=== PATIENT | female | born 1975 | race Caucasian/White ===

== ENCOUNTER 2017-05-06 08:28 | Day surgery (SDC) | payer BC ==
[~2017-05-06 08:28] MED LIST: Lidocaine 1%/Sod Bicarbonate in NS 8.4% 1 ML Syringe IV PRN; Sodium Chloride 0.9% 10 ML Syringe FLUSH PRN
[2017-05-06] MEDS ORDERED: Sodium Chloride 0.9% 50 ML SDV ONE (08:51)
[2017-05-06] MEDS ORDERED: Lidocaine 1% with EPINEPHrine 1:100,000 20 ML MDV ONE (08:51)
[2017-05-06] MEDS ORDERED: Propofol 200 MG/20 ML SDV ONE (09:00)
[2017-05-06] MEDS ORDERED: Midazolam 1 MG/ML 2 ML SDV ONE (09:01)
[2017-05-06] MEDS ORDERED: Lidocaine 1% 4 ML ONE (09:01)
[2017-05-06] MEDS ORDERED: fentaNYL 250 MCG/5 ML SDV ONE (09:01)
[2017-05-06] MEDS ORDERED: Rocuronium 50 MG/5 ML Vial ONE (09:01)
[2017-05-06] MEDS ORDERED: Ondansetron 4 MG/2 ML SDV ONE (09:01)
[2017-05-06] MEDS ORDERED: Dexamethasone 4 MG/ML SDV ONE (09:01)
[2017-05-06] MEDS: Lactated Ringers 1,000 ML IV SCH ×2 (09:05→10:27)
--- NOTE | 2017-05-06 09:12 | PCM.PREANE ---
Preanesthetic Assessment - Procedure Proposed Procedure: TVH - Anesthesia/Transfusion/Family Hx Anesthesia History: Prior Anesthesia Reaction Family History of Anesthesia Reaction: No Transfusion History: No Prior Transfusion(s) Intubation History: Unknown - Review of Systems General: No Symptoms Pulmonary: No Symptoms Cardiovascular: Other (Hx of HLD- resolved with fish oil ) Gastrointestinal: Other (Occasional GERD that resolves with TUMs ) Neurological: No Symptoms Other: Reports: None - Physical Assessment NPO Status Date: 05/05/17 NPO Status Time: 21:00 Pulse: 71 O2 Sat by Pulse Oximetry: 98 Respiratory Rate: 16 Blood Pressure: 128/73 Temperature: 36.6 C Height: 1.65 m Weight: 61 kg ASA Class: 2 Mental Status: Alert & Oriented x3 Airway Class: Mallampati = 3 Dentition: Reports: Normal Dentition Thyro-Mental Finger Breadths: 3 ROM/Head Extension: Full Lungs: Clear to Auscultation, Normal Respiratory Effort Cardiovascular: Regular Rate, Regular Rhythm - Allergies Allergies/Adverse Reactions: Allergies Allergy/AdvReac Type Severity Reaction Status Date / Time No Known Allergies Allergy Verified 05/04/17 14:03 - Blood Blood Available: No Product(s) Available: None - Anesthesia Plan Pre-Op Medication Ordered: None - Acknowledgements Anesthesia Type Planned: General Anesthesia Pt an Appropriate Candidate for the Planned Anesthesia: Yes Alternatives and Risks of Anesthesia Discussed w Pt/Guardian: Yes Pt/Guardian Understands and Agrees with Anesthesia Plan: Yes PreAnesthesia Questionnaire - HOME MEDS Home Medications: Home Meds Fish Oil/[place]-3 Fatty Acids [Fish Oil 1,000 MG] 1 gm PO DAILY 05/04/17 [History ] Multivitamin [Poly-Vitamin] 1 tab PO DAILY 05/04/17 [History] - CURRENT (IN HOUSE) MEDS Current Meds: Current Medications Lactated Ringer's (Ringers, Lactated) 1,000 mls @ 125 mls/hr IV ASDIRECTED LUCILLE Lidocaine/Sodium Bicarbonate (Buffered Lidocaine 1% In Ns 8.4%) 0.25 ml IV ONETIME PRN PRN Reason: Prior to IV Start Sodium Chloride (Saline Flush) 10 ml FLUSH ASDIRECTED PRN PRN Reason: Keep Vein Open Discontinued Medications Dexamethasone (Dexamethasone) Confirm Administered Dose 4 mg .ROUTE .STK-MED ONE Stop: 05/06/17 09:02 Fentanyl (Sublimaze) Confirm Administered Dose 250 mcg .ROUTE .STK-MED ONE Stop: 05/06/17 09:02 Lidocaine HCl (Xylocaine-Mpf 1%) Confirm Administered Dose 4 mls @ as directed .ROUTE .STK-MED ONE Stop: 05/06/17 09:02 Lidocaine/Epinephrine (Xylocaine 1% With Epinephrine 1:100,000) Confirm Administered Dose 20 ml .ROUTE .STK-MED ONE Stop: 05/06/17 08:52 Midazolam HCl (Versed 1 Mg/Ml) Confirm Administered Dose 2 mg .ROUTE .STK-MED ONE Stop: 05/06/17 09:02 Ondansetron HCl (Zofran) Confirm Administered Dose 4 mg .ROUTE .STK-MED ONE Stop: 05/06/17 09:02 Propofol (Diprivan 20 Ml) Confirm Administered Dose 200 mg .ROUTE .STK-MED ONE Stop: 05/06/17 09:01 Rocuronium [place] (Zemuron) Confirm Administered Dose 50 mg .ROUTE .STK-MED ONE Stop: 05/06/17 09:02 Sodium Chloride (Normal Saline) Confirm Administered Dose 50 ml .ROUTE .STK-MED ONE Stop: 05/06/17 08:52
[2017-05-06] MEDS ORDERED: ceFAZolin 1 GM Vial ONE (09:41)
[2017-05-06] MEDS ORDERED: HYDROmorphone 1 MG/ML Syringe ONE (09:58)
[2017-05-06] MEDS ORDERED: Neostigmine Methylsulfate 1 MG/ML 5 ML Syringe ONE (10:04)
[2017-05-06] MEDS ORDERED: Ketorolac 30 MG/ML SDV ONE (10:17)
[2017-05-06] MEDS ORDERED: Acetaminophen/oxyCODONE 325-5 MG Tab PO PRN (10:22)
[2017-05-06] MEDS ORDERED: Ondansetron 4 MG/2 ML SDV IVPUSH PRN ×2 (10:22→10:27)
[2017-05-06] MEDS ORDERED: fentaNYL 100 MCG/2 ML SDV IVPUSH PRN (10:27)
[2017-05-06] MEDS ORDERED: diphenhydrAMINE 50 MG/ML SDV IVPUSH PRN (10:27)
[2017-05-06] MEDS ORDERED: HYDROmorphone 0.5 MG/0.5 ML Syringe IVPUSH PRN (10:27)
[2017-05-06] MEDS ORDERED: Meperidine PF 50 MG/ML Syringe IVPUSH PRN (10:27)
--- NOTE | 2017-05-06 10:27 | PCM.POSTAN ---
POST ANESTHESIA ASSESSMENT - MENTAL STATUS Mental Status: Alert, Oriented - VITAL SIGNS Pulse Rate: 90 SaO2: 93 Resp Rate: 14 Blood Pressure: 117/76 Temperature: 37.4 C - RESPIRATORY Respiratory Status: Respiratory Rate WNL, Airway Patent, O2 Saturation Stable - CARDIOVASCULAR CV Status: Pulse Rate WNL, Blood Pressure Stable - GASTROINTESTINAL GI Status: No Symptoms - PAIN Pain Score: 0 - POST OP HYDRATION Hydration Status: Adequate & Stable
--- NOTE | 2017-05-06 10:30 | PCM.OPNOTE ---
- General Post-Op/Procedure Note Date of Surgery/Procedure: 05/06/17 Operative Procedure(s): Total vaginal hysterectomy with bilateral salpingectomy Findings: Uterus tubes and ovaries are within normal limits. Ovaries appear functional. Patient has a grade 1 cystocele and slight rectocele. Pre Op Diagnosis: 1. Abnormal uterine bleeding. 2. Dysmenorrhea Post-Op Diagnosis: Same Anesthesia Technique: General ET Tube Other Anesthesia Type: Lidocaine quarter percent with mL Primary Surgeon: Shiva Arroyo Secondary Surgeon: John Melvin Anesthesia Provider: Osmin Quinn Ibm Bpm Developer: Catherine Tafoya Reason Ibm Bpm Developer Was Necessary: Retraction, quality of care, patient safety Role of Ibm Bpm Developer: Retraction Fluid Replacement, Intraop: 1,000 EBL in mLs: 25 Complications: None Condition: Good Free Text/Narrative:: Surgery duration: 27 minutes Procedure: The patient was placed in supine position on the operating table. General endotracheal anesthesia was accomplished. After positioning, and adequate prep and drape, the procedure was then performed. Sterile speculum was placed in the vagina and cervix was visualized. Cervix was injected with lidocaine quarter percent with [id number] mL used. A full circumference incision was made in the cervical epithelium. The bladder was pushed well back off cervix. Posterior cul-de-sac was then entered sharply without problems. Left uterosacral was crossclamped with a Enseal vessel closure system. The left uterosacral and then the right uterosacral ligament pedicles were developed using the Enseal system. The anterior cul-de-sac was then entered without problems and the uterine vasculature, cardinal ligament and broad ligament then developed using Enseal vessel closure system. The uterus was inverted at this time and upper broad ligament fallopian tube pedicles were crossclamped with Ramya clamps. Specimen was totally removed. Both these pedicles were then secured with a Ramya stitch of #1 Vicryl. Left and right fallopian tube was normal in appearance.. Using Enseal vessel closure system each of the tubes was then removed and sent with the specimen. The Enseal vessel closure system was used to remove both ovaries. The patient was found to be hemostatically intact at this time. Vaginal cuff was sutured for hemostatic reasons with a running locked suture of 0 Monocryl from the 2 o' clock position to the 10 o'clock position posteriorly. Vaginal cuff was then closed from right to left side with a running locked suture of 0 Monocryl. Patient was returned to supine position and awakened from general endotracheal anesthesia. She tolerated the procedure was then left the operating room in satisfactory condition.
== END 2017-05-06 13:15 | disposition home or self-care (01) ==
LOC: JD.SDS 08:28
PROVIDERS: ATTEND Obstetrics & Gynecology
DX: D25.9 Leiomyoma of uterus, unspecified (principal); N72 Inflammatory disease of cervix uteri; N87.9 Dysplasia of cervix uteri, unspecified; K21.9 Gastro-esophageal reflux disease without esophagitis; E78.5 Hyperlipidemia, unspecified; F17.210 Nicotine dependence, cigarettes, uncomplicated; Z79.899 Other long term (current) drug therapy
CPT/HCPCS: 36415; 58262; 86850; 86900; 86901; J0690; J1100; J1170; J1885; J2250; J2405; J2710; J3010; J7120; 00944; J2704